=== PATIENT | male | born 1945 | race Caucasian/White ===

== ENCOUNTER → 2020-06-24 | Outpatient (CLI) | payer OTHER | LOC: LAB 08:57 | PROVIDERS: ATTEND Ophthalmology | DX: Z01.812 Encounter for preprocedural laboratory examination (principal); Z20.822 Contact with and (suspected) exposure to COVID-19 ==

== ENCOUNTER → 2020-06-30 | Day surgery (SDC) | payer OTHER ==
[~2020-06-30] VITALS: Ht 190.5 cm; Wt 83.0 kg
[~2020-06-30] MED LIST: LOW DOSE ASPIRI81 M1 PO; SUPER THERAVIT1 EACH PO
--- NOTE | ~2020-06-30 | O ---
[facility] [place] [address] OPERATIVE REPORT Name: OPAL OKEEFE Room #: REG [facility] M..#: [id number] Admission: 06/30/20 Attend Phys: Georges Torres MD Discharge: Date of : 41 Report #: [id number] THIS REPORT FOR: cc: Ihsan Ross MD,Ihsan Torres,Georges Vale MD ~ DOC #: [id number] DATE OF SERVICE: 06/30/20 [employer]: None. PREOPERATIVE DIAGNOSIS: Bilateral lower lid entropion. POSTOPERATIVE DIAGNOSIS: Bilateral lower lid entropion. OPERATION PERFORMED: Bilateral lower lid entropion repair. ANESTHESIA: Local with IV sedation. COMPLICATIONS: None. INDICATIONS FOR PROCEDURE: This patient has bilateral lower lid entropion with chronic irritation and discharge. The current procedures are being undertaken in order to improve the patient's level of comfort and visual function. Informed consent was obtained to include but not limited to the loss of vision, bleeding, infection, scarring, failure to improve the problem and need for further surgery. DESCRIPTION OF OPERATION: The patient was taken to the operating room, where 2% Xylocaine with epinephrine mixed with equal parts of 0.75% Marcaine with Wydase was administered transcutaneously and transconjunctivally to each lower lid and lateral canthal area. The patient was then prepped and draped in the usual sterile fashion. A Martha clamp was used to clamp the left lateral canthus, following which a sharp canthotomy and cantholysis were performed. Hemostasis was achieved with a monopolar cautery, as it was throughout the case. A tarsal strip was prepared laterally, removing the lash bearing portion of the redundant lid margin and the redundant tarsal plate. A transconjunctival dissection was then undertaken just inferior to the lower border of the tarsal plate. The lower lid retractors were disinserted from the inferior border of the tarsal plate. The lower lid retractors were then advanced and reattached to the anterior surface of the tarsal plate with mattress 5-0 chromic sutures passed transconjunctivally and secured in the infraciliary margin. The tarsal strip was then secured laterally with 2 interrupted 5-0 Prolene sutures. The subcutaneous structures and the skin were then closed with multiple interrupted [address] [address] OPERATIVE REPORT Name: OPAL OKEEFE Room #: REG [facility]..#: [id number] Admission: 06/30/20 Attend Phys: Georges Torres MD Discharge: Date of : 41 Report #: [id number] 6-0 plain gut sutures so the lateral canthal angle was sharply reformed. The wounds were then cleaned and dressed with ophthalmic antibiotic ointment. The patient was then transported to the recovery area, having tolerated the procedure well with no anesthetic or operative complications being noted. By: [id number] Georges Torres MD /nt
[2020-06-30 07:42] VITALS: BP 130/66
== END | disposition home or self-care (01) ==
LOC: OR 06:47
PROVIDERS: ATTEND Ophthalmology
DX: H02.005 Unspecified entropion of left lower eyelid (principal); H02.002 Unspecified entropion of right lower eyelid; Z98.890 Other specified postprocedural states; Z98.41 Cataract extraction status, right eye; Z98.42 Cataract extraction status, left eye; Z85.828 Personal history of other malignant neoplasm of skin; Z87.891 Personal history of nicotine dependence; Z98.52 Vasectomy status; Z79.82 Long term (current) use of aspirin
CPT/HCPCS: 50010; 50101; 50386; 50398; 51636; 56527; 56531; 62110; 62850; 70005

== ENCOUNTER → 2021-04-20 | Day surgery (SDC) | payer OTHER ==
[~2021-04-20] VITALS: Ht 190.5 cm; Wt 84.4 kg
[2021-04-20 07:48] VITALS: BP 117/74
--- NOTE | 2021-04-24 06:14 | O ---
[facility] [place] [address] OPERATIVE REPORT Name: OPAL OKEEFE Room #: REG [facility] M..#: [id number] Admission: 04/20/21 Attend Phys: Georges Torres MD Discharge: Date of : 41 Report #: [id number] THIS REPORT FOR: cc: Ihsan Ross MD,Ihsan Torres,Georges Vale MD ~ cc: Ihsan Ross MD DATE OF SERVICE: 04/20/2021 [employer]OURIST HOME KEEPER: None. PREOPERATIVE DIAGNOSIS: Bilateral upper lid ptosis with superior visual field defects both eyes. POSTOPERATIVE DIAGNOSIS: Bilateral upper lid ptosis with superior visual field defects both eyes. OPERATION PERFORMED: Bilateral upper lid functional ptosis repair. TOURIST HOME KEEPER: None. ANESTHESIA: Local with IV sedation. COMPLICATIONS: None. INDICATIONS FOR PROCEDURE: This patient has bilateral upper lid ptosis with superior visual field loss both eyes. Visual field testing demonstrates dense superior visual defects. Retesting with the upper lid elevated shows an improvement in visual field loss of over 30% and in excess of 12 degrees. The current procedure is being undertaken in order to improve the patient's visual function. Informed consent was obtained to include but not limited to the risk of loss of vision, bleeding, infection, scarring, failure to improve the problem and need for further surgery, such as adjustment of lid height. DESCRIPTION OF PROCEDURE: The patient was taken to the operating room, where 2% Xylocaine with epinephrine mixed with equal parts of 0.75% Marcaine with Wydase was administered transcutaneously to each upper lid. The patient was then prepped and draped in the usual sterile fashion. An upper lid crease incision was then made bilaterally and the dissection was carried down until the orbital septum was identified. The orbital septum was then cleared and the preaponeurotic fat identified. The levator aponeurosis was then disinserted from the anterior surface of the tarsal plate and dissected [address] [address] OPERATIVE REPORT Name: OPAL OKEEFE Room #: REG [facility]..#: [id number] Admission: 04/20/21 Attend Phys: Georges Torres MD Discharge: Date of : 41 Report #: [id number] free in the avascular Ascencio's muscle plane. The aponeurosis was then advanced and reattached to the anterior surface of the tarsal plate with interrupted mattress 6-0 Novafil sutures on each side, adjusting for height and contour. The redundant aponeurosis was then amputated. The incision was then closed with multiple interrupted 6-0 chromic sutures that were used to recreate an upper lid crease. The skin was closed with a running 6-0 plain gut suture. The wound was then cleaned and dressed with ophthalmic antibiotic ointment followed by a Telfa pad. The patient was transported to the recovery area, having tolerated the procedure well with no anesthesia or operative complications being noted. <ELECTRONICALLY SIGNED> By: Georges Torres MD 04/24/21 0614 3 5 Georges Torres MD /darrius
== END | disposition home or self-care (01) ==
LOC: OR 06:10 → EDSTATUS 09:35 → OR 09:46
PROVIDERS: ATTEND Ophthalmology
DX: H02.413 Mechanical ptosis of bilateral eyelids (principal); H53.462 Homonymous bilateral field defects, left side; H53.461 Homonymous bilateral field defects, right side; Z98.890 Other specified postprocedural states; Z79.899 Other long term (current) drug therapy; Z20.822 Contact with and (suspected) exposure to COVID-19; Z98.52 Vasectomy status; Z85.828 Personal history of other malignant neoplasm of skin; Z98.41 Cataract extraction status, right eye; Z98.42 Cataract extraction status, left eye
CPT/HCPCS: 50010; 50101; 50386; 50398; 51636; 56528; 56531; 62110; 62850; 70005